=== PATIENT | male | born 1995 | race Caucasian/White ===

== ENCOUNTER 2020-02-15 14:34 | Outpatient (CLI) | payer OTHER, SELFPAY ==
--- NOTE | ~2020-02-15 | XR_ITS ---
EXAMINATION: XR hand LT 2V DATE: 02/15/2020 15:00 INDICATION: Left hand pain. TECHNIQUE: 3 views of left hand were obtained. COMPARISON: None. FINDINGS: There is an oblique fracture of neck of fifth metacarpal. The distal fracture fragment demo nstrates impaction, 30 degrees palmar angulation, and 20 degrees radial angulation. Joint spaces are normal. IMPRESSION: 1. Oblique fracture of neck of fifth metacarpal. Reviewed, dictated and finalized at location A.
== END 2020-02-15 14:35 | disposition home or self-care (01) ==
PROVIDERS: PCP Family Medicine; Visit Provider Physician Assistant
DX: S62.337A Displaced fracture of neck of fifth metacarpal bone, left hand, initial encounter for closed fracture (principal); X58.XXXA Exposure to other specified factors, initial encounter
CPT/HCPCS: 73120

== ENCOUNTER → 2021-06-18 09:25 | Outpatient (CLI) | payer OTHER, SELFPAY ==
[2021-06-18 17:28] LABS: SARS-CoV-2 RNA PCR Negative
== END ==
PROVIDERS: PCP Family Medicine; Visit Provider Nurse Practitioner Family
DX: R68.89 Other general symptoms and signs (principal); Z20.822 Contact with and (suspected) exposure to COVID-19
CPT/HCPCS: C9803; U0003; U0005

== ENCOUNTER 2021-11-21 07:54 | Outpatient (CLI) | payer OTHER, SELFPAY ==
--- NOTE | 2021-11-22 18:45 | WPDHOMESLEEP ---
Sleep Study - Home Unattended Date of Study: 11/21/21 Ordering Provider: HILDA Nichols Interpreting Provider: Tammy Kang, DO Home Sleep Study Type: Watch PAT Height: 1.7 m Weight: 77.111 kg Body Mass Index: 26.6 Neck Circumference (inches): 14.75 [place]: 11 Reason for Sleep Study Unrefreshing sleep and daytime hypersomnia Sleep History The patient is a 25-year-old male with ADHD, acid reflux, and seasonal allergies that had a home sleep test ordered by his primary care due to unrefreshing sleep. The patient states that he has been extremely tired for the past 6 months. The patient occasionally awakens from sleep short of breath. He occasionally awakens at night with heartburn, belching or cough. He frequently snores loud enough that others complain. He occasionally has trouble sleeping he has a cold. He rarely wakes up gasping for air throughout the night. He occasionally has breathing problems at night observed by others. He occasionally sweats excessively at night. He rarely has heart palpitations or irregular heartbeats during the night. He occasionally falls asleep during the day. He rarely falls asleep while driving. He denies cataplexy. He rarely feels unable to move when waking up or falling asleep. He frequently has trouble at school or work due to sleepiness. He occasionally has vivid dreamlike scenes upon awakening or falling asleep. He occasionally has nightmares. He frequently has thoughts racing through his mind. He rarely feels sad or depressed. He occasionally has anxiety. He frequently notices parts of his body jerk. He frequently kicks during the night. He occasionally has crawling and aching feelings in his legs. He rarely has leg pain during the night. He occasionally grinds his teeth during sleep but rarely awakens with morning jaw pain. He is rarely bothered by pain during the day and rarely awakened by pain during the night. He rarely wakes up feeling stiff in the morning with sore or achy muscles. He occasionally wakes up with pain in the neck, spine or other joints. He goes to bed between 9 and 11:00 p.m. on weekdays and between 10:00 p.m. and midnight on the weekends. It takes him 10-15 minutes to fall asleep. He states that the number of times he wakes up per night varies. He can usually fall asleep within minutes. He wakes up between 5 and 7:00 a.m. on the weekdays and between 7 and 9:00 a.m. on the weekends. He typically gets 6-8 hours of sleep per night. He will stay in bed for 5 minutes after waking up in the morning. He currently lives with his fisarahe. He does not consume any caffeinated beverages within 2 hours of bedtime. He will exercise before bedtime. He will read watch television before falling asleep. He will take naps in the afternoon or the evening and they are occasionally refreshing. He drinks 1-2 caffeinated beverages per day. He drinks 2-5 alcoholic beverages per week. He denies tobacco and recreational drug use. [facility] Past Medical History Medical History (Updated 11/22/21 @ 18:55 by Tammy Kang DO) Adult ADHD Surgical History Surgical History History of myringotomy History of tonsillectomy Social History Social History Smoking status: Never smoker Second hand tobacco smoke exposure: No Alcohol intake: current Drinks per week: 5 Substance use: never Substance use type: does not use Gender identity (if verbalized by the patient): Male Medications Home Medications Medication Instructions Recorded Confirmed Type albuterol sulfate 90 mcg/actuation 1 puff INHALATION Q4H PRN #8.5 g 06/21/21 06/21/21 Rx aerosol inhaler benzonatate 100 mg capsule 100 mg PO BID PRN #30 cap 06/21/21 06/21/21 Rx lisdexamfetamine 30 mg capsule 30 mg PO QAM #30 cap 11/07/21 Rx Sleep Procedure The sleep study was compl
[2021-11-22 19:00] VITALS: BMI 26.6
== END 2021-11-22 10:10 | disposition home or self-care (01) ==
LOC: ANHCSM 07:56
PROVIDERS: PCP Family Medicine; Visit Provider Nurse Practitioner Family
DX: G47.33 Obstructive sleep apnea (adult) (pediatric) (principal); G47.9 Sleep disorder, unspecified
CPT/HCPCS: 95800